=== PATIENT | female | born 1990 | race Caucasian/White ===

== ENCOUNTER 2024-09-22 22:45 | Emergency (ER) | payer BC, MEDICARE ==
[2024-09-22 23:37] LABS: BLOOD UREA NITROGEN,BUN 33.0 mg/dL (7-18); CARBON DIOXIDE,CO2 20.0 mmol/L (21-32); CHLORIDE,CL 95.0 mmol/L (100-108); EST CRCL DRUG DOSING (CG) 9.33 mL/min; ESTIMATED GFR 9.0 mL/min (>60); GLUCOSE RANDOM 102.0 mg/dL (74-106); POTASSIUM,K 3.6 mmol/L (3.6-5.2); SODIUM,NA 134.0 mmol/L (140-148)
[2024-09-22 23:39] LABS: BASOPHILS ABSOLUTE AUTO 0.12 K/uL (0.00-0.10); BASOPHILS PERCENT AUTO 0.6 % (0.1-1.3); EOSINOPHILS ABSOLUTE AUTO 0.90 K/uL (0.00-0.40); EOSINOPHILS PERCENT AUTO 4.8 % (0.0-5.4); IMMATURE GRAN ABSOLUTE AUTO 0.09 K/uL (0.00-0.23); IMMATURE GRAN PERCENT AUTO 0.5 % (0.0-0.7); LYMPHOCYTES ABSOLUTE AUTO 2.18 K/uL (0.8-3.3); LYMPHOCYTES PERCENT AUTO 11.6 % (11.4-47.7); MONOCYTES ABSOLUTE AUTO 0.90 K/uL (0.20-0.90); MONOCYTES PERCENT AUTO 4.8 % (3.3-12.6); NEUTROPHILS ABSOLUTE AUTO 14.66 K/uL (1.0-7.6); NEUTROPHILS PERCENT AUTO 77.7 % (40.0-78.1); PLATELET COUNT,PLT 277 K/uL (130-375); RED BLOOD CELL COUNT 3.54 M/uL (3.77-5.24); WHITE BLOOD CELL COUNT,WBC 18.9 K/uL (3.2-11.0)
[2024-09-22 23:40] LABS: CREATININE 6.1 mg/dL (0.6-1.0)
[2024-09-22] MEDS: hydrALAZINE 20 MG/ML SDV IVPUSH ONE (23:49)
[2024-09-22] MEDS: diphenhydrAMINE 50 MG/ML SDV IVPUSH ONE (23:50)
[2024-09-22] MEDS: Prochlorperazine 10 MG/2 ML SDV IVPUSH ONE (23:50)
== END 2024-09-23 01:30 | disposition home or self-care (01) ==
LOC: JP.ED 22:45
DX: I10 Essential (primary) hypertension (principal)
CPT/HCPCS: 36415; 70450; 80048; 85025; 96374; 96375; 99284; J0360; J0780; J1200; 82947